=== PATIENT | female | born 1950 | race Caucasian/White ===

== ENCOUNTER → 2017-03-06 | Outpatient (CLI) | payer MEDICARE, OTHER ==
[~2017-03-06] MED LIST: AMLODIPINE-OLM1 EAC3; XANAX1 MG; ZOCOR5 MG; ZOLOFT50 MG
--- NOTE | ~2017-03-06 | MY11 ---
[facility] A Service of [facility] RADIOLOGY TEXT RESULTS PATIENT: MAURICIO SEBASTIAN LOCATION: [facility] : 48 UNIT #: [id number] AGE: [address]: Amor Barnhart APRN SEX: F ORDER DR: [id number] [facility]. [place], [place] [address] [id number] O MR#: [id number] Acc #: [id number] NAME: MAURICIO SEBASTIAN : 1950 SEX: F STUDY DATE/TIME: 03/06/2017 9:04 UNIT: [facility] ROOM: STUDY DESCRIPTION: MY Mammogram Screening Dig Olu Attending Physician: Amor Barnhart Referring Physician: Amor Barnhart Ordering Physician: Aubree Barnhart M.D. Primary Care Physician: Amor Barnhart MEDICAL IMAGING REPORT This report is preliminary unless electronic signature is present EXAM Digital screening mammogram 03/06/2017 HISTORY 66-year-old woman. No risk elevation. Annual screen. COMPARISON Mammograms date to 05/09/2007 with most recent 08/30/2010. FINDINGS Digital imaging of each breast was completed utilizing standard craniocaudal and mediolateral-oblique projections. Review and interpretation of digital mammograms include a second review in conjunction with FDA-approved CAD device. There is an overall increase in the parenchymal presentation bilaterally with a generalized fibronodular pattern in each breast. There are no breast masses and I see no asymmetry in the parenchymal presentation. There are no suspicious microcalcifications and I see no architectural disturbance. IMPRESSION Benign mammogram. One-year followup recommended. Patients over the age of 40 are entered into a reminder system with target due date for the next mammogram. A result letter will also be sent to the patient. BIRADS: 2 Benign finding Dictated by... Francis iDck M.D. THIS IS AN ELECTRONICALLY VERIFIED REPORT [facility] A Service [facility] RADIOLOGY TEXT RESULTS PATIENT: MAURICIO SEBASTIAN LOCATION: [facility] : 48 UNIT #: [id number] AGE: [address]: Amor Barnhart APRN SEX: F ORDER DR: Francis Dick M.D. at 03/06/2017 12:29 PM CHAPIN/cornelius TD: 03/06/2017 11:12 JOB #: [id number] MEDICAL IMAGING REPORT Page 1 of 1 COPY
--- NOTE | ~2017-03-06 | BD1 ---
[facility] A Service of [facility] RADIOLOGY TEXT RESULTS PATIENT: MAURICIO SEBASTIAN LOCATION: [facility] : 48 UNIT #: [id number] AGE: [address]: Amor Barnhart APRN SEX: F ORDER DR: [id number] [facility] [address] [facility] [place], [place] [address] [id number] O MR#: [id number] Acc #: [id number] NAME: MAURICIO SEBASTIAN : 1950 SEX: F STUDY DATE/TIME: 03/06/2017 9:22 UNIT: [facility] ROOM: STUDY DESCRIPTION: Dexa Bone Dens 1+ Site Attending Physician: Amor Barnhart Referring Physician: Amor Barnhart Ordering Physician: Aubree Barnhart M.D. Primary Care Physician: Amor Barnhart MEDICAL IMAGING REPORT This report is preliminary unless electronic signature is present EXAM DXA scan, 03/06/2017 HISTORY 66-year-old postmenopausal female for osteoporosis screening. COMPARISON None FINDINGS L1-L2 total bone mineral density is 1.060 g/cm2 with T-score 0.1 and Z-score 2.0, within normal limits. The left femoral neck bone mineral density is 0.657 g/cm2 with T-score -1.7 and Z score -0.1, corresponding to the range of osteopenia. IMPRESSION 1. Bone mineral density in the left femoral neck corresponds to the range of osteopenia. 2. Normal bone mineral density within the lumbar spine. Dictated by... Subha Merlos M.D. THIS IS AN ELECTRONICALLY VERIFIED REPORT Subha Merlos M.D. at 03/07/2017 9:40 AM MARCELLUS/joselin TD: 03/06/2017 12:07 JOB #: [id number] MEDICAL IMAGING REPORT Page 1 of 1 COPY
== END | disposition home or self-care (01) ==
LOC: CMAM 08:46
DX: Z12.31 Encounter for screening mammogram for malignant neoplasm of breast (principal); Z13.820 Encounter for screening for osteoporosis; M85.852 Other specified disorders of bone density and structure, left thigh
CPT/HCPCS: 77080; G0202

== ENCOUNTER 2017-05-30 12:11 | Emergency (ER) | payer MEDICARE, OTHER ==
[~2017-05-30] VITALS: Ht 167.6 cm; Wt 117.9 kg
--- NOTE | ~2017-05-30 | CT71 ---
[facility] A Service [facility] RADIOLOGY TEXT RESULTS PATIENT: MAURICIO SEBASTIAN LOCATION: [facility] : 48 UNIT #: [id number] AGE: [address]: Iesha Mckeon MD SEX: F ORDER DR: [id number] [address] [address] [id number] MR#: [id number] Acc #: [id number] NAME: MAURICIO SEBASTIAN : 1950 SEX: F STUDY DATE/TIME: 05/30/2017 13:09 UNIT: SED ROOM: STUDY DESCRIPTION: CT Head Wo Contrast Attending Physician: Iesha Mckeon M.D. Ordering Physician: Iesha Mckeon M.D. Primary Care Physician: Amor Barnhart MEDICAL IMAGING REPORT This report is preliminary unless electronic signature is present. EXAM CT head 05/30/2017 HISTORY Dizziness, hypertension, TIA 2003, dizziness today at 3 a.m., blood pressure 189/109. TECHNIQUE CT head performed skull base through vertex without intravenous contrast. This CT exam was performed with one or more of the following radiation dose reduction techniques: automatic exposure control, adjustment of mA and/or kV according to patient size, and iterative reconstruction. COMPARISON No comparisons FINDINGS Brain stem unremarkable. Cerebellum and cerebral hemispheres show normal obrien matter - white matter differentiation. No hemorrhage. No evidence of acute cortical ischemia. Midline structures nondisplaced. Basal ganglia intact. Ventricles, cisterns and sulci normal in size and contour. No intra or extraaxial mass effect or abnormal intracranial fluid collection. The intraorbital soft tissues are unremarkable. The visualized paranasal sinuses and mastoid air cells are clear. Bony structures unremarkable. IMPRESSION Normal CT of the head. If the patient has ongoing neurologic symptoms, consider follow up imaging. [facility] A [facility] RADIOLOGY TEXT RESULTS PATIENT: MAURICIO SEBASTIAN LOCATION: [facility] : 48 UNIT #: [id number] AGE: [address]: Iesha Mckeon MD SEX: F ORDER DR: Dictated by... Ashu Marcus M.D. THIS IS AN ELECTRONICALLY VERIFIED REPORT Ashu Marcus M.D. at 06/01/2017 7:36 AM MARTINE/jose TD: 05/30/2017 20:48 JOB #: [id number] MEDICAL IMAGING REPORT Page 1 of 1
[2017-05-30] MEDS ORDERED: AMLODIPINE-OLM1 EAC3 (12:14)
[2017-05-30] MEDS ORDERED: XANAX1 MG (12:15)
[2017-05-30] MEDS ORDERED: ZOLOFT50 MG (12:15)
[2017-05-30] MEDS ORDERED: ZOCOR5 MG (12:15)
== END 2017-05-30 14:52 | disposition home or self-care (01) ==
LOC: SED 12:11
DX: H81.10 Benign paroxysmal vertigo, unspecified ear (principal); E78.5 Hyperlipidemia, unspecified; I10 Essential (primary) hypertension; Z90.49 Acquired absence of other specified parts of digestive tract; Z90.710 Acquired absence of both cervix and uterus
CPT/HCPCS: 70450; 99284